=== PATIENT | male | born 1970 | race Caucasian/White ===

== ENCOUNTER 2016-11-09 08:11 | Emergency (ER) | payer OTHER ==
[~2016-11-09] VITALS: Ht 172.7 cm; Wt 89.3 kg
[~2016-11-09 08:11] MED LIST: CELEXA40 MG PO; FLOMAX0.4 MG PO; INDOCIN25 MG PO; KLONOPIN0.5 M1 PO; PERCOCET 5/31 TABLET PO; PRILOSEC40 MG PO; PROTONIX40 MG PO; TORADOL10 MG PO; ULTRACET1 TABLET PO; ZOFRAN ODT4 MG PO; ZOFRAN4 MG PO
[2016-11-09] MEDS ORDERED: KEFLEX500 MG PO (09:29)
[2016-11-09 09:58] VITALS: BP 132/57
== END 2016-11-09 09:58 | disposition home or self-care (01) ==
LOC: EME 08:11
DX: S61.012A Laceration without foreign body of left thumb without damage to nail, initial encounter (principal); W29.3XXA Contact with powered garden and outdoor hand tools and machinery, initial encounter; Y93.89 Activity, other specified
CPT/HCPCS: 73140; 99281; 99283

== ENCOUNTER 2017-02-19 11:51 | Day surgery (SDC) | payer OTHER ==
[~2017-02-19] VITALS: Ht 172.7 cm; Wt 88.0 kg
[~2017-02-19 11:51] MED LIST changes: +KEFLEX500 MG PO
== END 2017-02-19 13:50 | disposition home or self-care (01) ==
LOC: PAIN 11:51 → SDC 12:45 → PAIN 13:50
DX: M47.816 Spondylosis without myelopathy or radiculopathy, lumbar region (principal); M54.42 Lumbago with sciatica, left side; G89.29 Other chronic pain; M48.06 Spinal stenosis, lumbar region; G57.92 Unspecified mononeuropathy of left lower limb; F41.9 Anxiety disorder, unspecified; K21.9 Gastro-esophageal reflux disease without esophagitis; M51.36 Other intervertebral disc degeneration, lumbar region; Z79.891 Long term (current) use of opiate analgesic
CPT/HCPCS: J1030; J2250; J3010; S0020

== ENCOUNTER 2017-03-06 11:50 | Day surgery (SDC) | payer OTHER ==
[~2017-03-06] VITALS: Ht 172.7 cm; Wt 86.4 kg
== END 2017-03-06 13:50 | disposition home or self-care (01) ==
LOC: PAIN 11:50
DX: M47.816 Spondylosis without myelopathy or radiculopathy, lumbar region (principal); F41.9 Anxiety disorder, unspecified
CPT/HCPCS: J1030; J2250; J3010; S0020

== ENCOUNTER 2017-03-07 17:47 | Emergency (ER) | payer OTHER ==
[~2017-03-07] VITALS: Ht 172.7 cm; Wt 89.6 kg
[2017-03-07 18:14] LABS: HEMATOCRIT 42.3 % (38.0-50.0); MCH 30.9 PG (29.0-34.0); MCHC 34.8 G/DL (30.0-36.0); MCV 89.1 FL (86-99); MEAN PLAT.VOLUME 10.5 uM^3 (9.0-12.4); PLATELET COUNT 227 K/uL (156-360); RBC DIS.WIDTH-CV 13.3 % (11.8-14.6); RBC DIS.WIDTH-SD 43.9 % (39-53); RED BLOOD COUNT 4.75 M/uL (4.00-5.50); WHITE BLOOD COUNT 13.4 K/uL (4.1-10.2)
[2017-03-07 18:25] LABS: CHLORIDE 102 mEq/L (99-109)
[2017-03-07 18:26] LABS: POTASSIUM 3.7 mEq/L (3.7-5.4); SODIUM 135 mEq/L (136-147)
[2017-03-07 18:27] LABS: GLUCOSE 96 mg/dL (70-99)
[2017-03-07 18:29] LABS: ADD MIUA? YES; BILIRUBIN NEGATIVE; BLOOD SMALL; COLOR STRAW ((YELLOW)); GLUCOSE (STRIP) NEGATIVE; KETONES NEGATIVE; LEUKOCYTES MODERATE; NITRITE NEGATIVE; PROTEIN (STRIP) NEGATIVE; SPECIFIC GRAVITY 1.005 (1.000-1.030); UROBILINOGEN 0.2 MG/DL (0.2-1.0)
[2017-03-07 18:29] LABS: ANION GAP 9 MEQ/L (2-14)
[2017-03-07 18:31] LABS: GFR ESTIMATE (CALCULATED) > 59 mL/min/
[2017-03-07 18:32] LABS: UREA NITROGEN (BUN) 17 mg/dL (9-23)
[2017-03-07 18:35] LABS: BACTERIA RARE /HPF; EPITHELIAL CELLS RARE /HPF; MUCUS TRACE /LPF; RED BLOOD CELLS 0-5 /HPF (0-5)
[2017-03-07 21:04] VITALS: BP 141/86
== END 2017-03-07 21:05 | disposition home or self-care (01) ==
LOC: EME 17:47 → EXP 17:47
PROVIDERS: Physician Assistant
DX: R10.32 Left lower quadrant pain (principal); Z87.442 Personal history of urinary calculi; F41.9 Anxiety disorder, unspecified; F17.200 Nicotine dependence, unspecified, uncomplicated; Z88.2 Allergy status to sulfonamides
CPT/HCPCS: 74176; 80048; 81003; 85027; 99281; 99284

== ENCOUNTER 2017-05-12 17:17 | Emergency (ER) | payer OTHER ==
[~2017-05-12] VITALS: Ht 172.7 cm; Wt 88.1 kg
[2017-05-12 18:31] VITALS: BP 122/78
== END 2017-05-12 18:25 | disposition home or self-care (01) ==
LOC: EME 17:17
DX: R39.89 Other symptoms and signs involving the genitourinary system (principal); Z46.6 Encounter for fitting and adjustment of urinary device; F41.9 Anxiety disorder, unspecified; F17.200 Nicotine dependence, unspecified, uncomplicated; Z87.442 Personal history of urinary calculi; Z88.8 Allergy status to other drugs, medicaments and biological substances
CPT/HCPCS: 99281; 99284

== ENCOUNTER 2017-07-26 08:05 | Day surgery (SDC) | payer OTHER ==
[~2017-07-26] VITALS: Ht 172.7 cm; Wt 86.3 kg
[~2017-07-26 08:05] MED LIST changes: +ASACOL HD800 MG PO; +MOBIC7.5 MG PO
== END 2017-07-26 09:38 | disposition home or self-care (01) ==
LOC: PAIN 08:05 → SDC 09:15 → PAIN 09:38
PROC: 3E0T3TZ Introduction of Destructive Agent into Peripheral Nerves and Plexi, Percutaneous Approach (ICD-10-PCS; principal; 2017-07-26)
PROC: BR161ZZ Fluoroscopy of Lumbar Facet Joint(s) using Low Osmolar Contrast (ICD-10-PCS; principal; 2017-07-26)
DX: M47.26 Other spondylosis with radiculopathy, lumbar region (principal); M51.16 Intervertebral disc disorders with radiculopathy, lumbar region; M54.42 Lumbago with sciatica, left side; M48.061 Spinal stenosis, lumbar region without neurogenic claudication; F41.8 Other specified anxiety disorders; K21.9 Gastro-esophageal reflux disease without esophagitis; F17.200 Nicotine dependence, unspecified, uncomplicated; Z79.891 Long term (current) use of opiate analgesic
CPT/HCPCS: J1030; J2250; J3010; S0020